=== PATIENT | female | born 1940 | race Caucasian/White ===

== ENCOUNTER 2017-01-15 08:49 | Emergency (ER) | payer MEDICARE ==
[2017-01-15 08:56] VITALS: BP 130/78
--- NOTE | 2017-01-15 09:24 | UC ---
Respiratory Complaint HPI - History of Current Complaint Chief Complaint: UCRespiratory Stated Complaint: COUGH,SINUS Time Seen by Provider: 01/15/17 09:15 Hx Obtained From: Patient Onset/Duration: Sudden Onset, Lasting Days - 10, Worse Since - in the last 2 days Severity Initially: Mild Severity Currently: Severe Character: Cough: Productive Alleviating Factors: Bronchodilator Associated Signs And Symptoms: Positive: Dyspnea, Chills, Wheezing, URI, Nasal Congestion, Hoarseness - Risk Factors Pulmonary Embolism Risk Factors: Negative Cardiac Risk Factors: Negative Tuberculosis Risk Factors: Negative - Allergies/Home Medications Allergies/Adverse Reactions: Allergies Allergy/AdvReac Type Severity Reaction Status Date / Time Codeine AdvReac Severe See Comment Verified 01/15/17 08:56 PMH/Surg Hx/FS Hx/Imm Hx Endocrine History: Hypothyroidism Cardiovascular History: Hypertension GI/ History: Gastroesophageal Reflux - Surgical History Surgical History: Yes Surgery Procedure, Year, and Place: HYSTERECTOMY. CHOLECYSTECTOMY - Family History Known Family History: Positive: Hypertension Negative: Cardiac Disease, Diabetes - Social History Occupation: Employed Part-time, Retired Lives: With Family Alcohol Use: Weekly Substance Use Type: None Smoking Status (MU): Former Smoker Have You Smoked in the Last Year: No When Did the Patient Quit Smoking/Using Tobacco: 16-17 YRS AGO. Review of Systems Constitutional: Chills ENT: Sore Throat, Nasal Discharge Respiratory: Shortness Of Breath, Cough Neurological: Headache - sinus All Other Systems Reviewed And Are Negative: Yes Physical Exam Triage Information Reviewed: Yes Appearance: No Pain Distress, Well-Nourished, Ill-Appearing Vital Signs: Initial Vital Signs Temp 97.7 F 01/15/17 08:51 Pulse 80 01/15/17 08:51 Resp 16 01/15/17 08:51 BP 130/78 01/15/17 08:51 Pulse Ox 98 01/15/17 08:51 Vital Signs Reviewed: Yes Eyes: Positive: Conjunctiva Clear ENT: Positive: Pharynx normal, Nasal congestion, TMs normal Dental: Positive: Abscess @ Respiratory: Positive: Lungs clear, Wheezing - moderate wheezing expiratory with coughing. Cardiovascular Exam: Normal Musculoskeletal Exam: Normal Neurological Exam: Normal Psychological Exam: Normal Skin Exam: Normal UC Diagnostic Evaluation - Laboratory O2 Sat by Pulse Oximetry: 98 Respiratory Course/Dx - Differential Dx/Diagnosis Differential Diagnosis/HQI/PQRI: Asthma, Lower Resp Infection, Sinusitis Provider Diagnoses: Acute URI. Acute sinusitis. Acute bronchospasm Discharge - Discharge Plan Condition: Stable Disposition: HOME Prescriptions: Albuterol/Ipratropium RESP(NF) [Combivent Respimat(NF)] 1 inh IN Q6HR PRN #1 aer PRN Reason: Wheezing DOXYcycline CAP(*) [DOXYcycline 100MG CAP(*)] 100 mg PO BID #20 cap predniSONE TAB* [Deltasone TAB*] 20 mg PO DAILY #18 tab Patient Education Materials: Upper Respiratory Infection (ED), Sinusitis (ED), Doxycycline (By mouth), Bronchospasm (ED), Prednisone (By mouth), Ipratropium/ Albuterol (By breathing)
== END 2017-01-15 09:39 | disposition home or self-care (01) ==
LOC: UCCORT 08:49
DX: J06.9 Acute upper respiratory infection, unspecified (principal); J01.90 Acute sinusitis, unspecified; J98.01 Acute bronchospasm; Z87.891 Personal history of nicotine dependence; E03.9 Hypothyroidism, unspecified; I10 Essential (primary) hypertension; Z88.5 Allergy status to narcotic agent; K21.9 Gastro-esophageal reflux disease without esophagitis
CPT/HCPCS: 99212; G0463